=== PATIENT | male | born 1960 | race Caucasian/White ===

== ENCOUNTER 2017-04-05 09:56 | Day surgery (SDC) | payer OTHER ==
[2017-04-01 12:47] VITALS: BMI 31.6
[2017-04-05] MEDS ORDERED: ROPIVACAINE HCL 0.5% 30ML VIAL ONE (12:41)
[2017-04-05] MEDS ORDERED: DEXAMETHASONE SOD PHOSPHATE/PF 10 MG/ML SDV ONE (12:41)
[2017-04-05] MEDS ORDERED: MIDAZOLAM HCL 2 MG/2 ML SINGLE DOSE VIAL ONE ×4 (12:42→13:43)
[2017-04-05] MEDS ORDERED: ceFAZolin SODIUM 1 GM VIAL ONE (13:29)
[2017-04-05] MEDS ORDERED: LIDOCAINE HCL 1%, 10 MG/ML (20ML VIAL) ONE (13:46)
[2017-04-05] MEDS ORDERED: ONDANSETRON 4 MG/2 ML VIAL IVPUSH PRN (14:28)
[2017-04-05] MEDS ORDERED: oxyCODONE HCL 5 MG TABLET PO PRN ×2 (14:28)
[2017-04-05] MEDS ORDERED: LACTATED RINGERS SOLUTION 1,000 ML IV SCH (14:30)
--- NOTE | 2017-04-05 15:29 | OP ---
DATE OF OPERATION: 04/05/2017 SURGEON: Cheikh Ruiz MD ENGAGEMENT MANAGER: JENNIFER Marcus PREOPERATIVE DIAGNOSIS: Right Achilles tendon rupture. POSTOPERATIVE DIAGNOSIS: Right Achilles tendon rupture. PROCEDURE: Right Achilles tendon repair, open. FINDINGS: Ruptured Achilles tendon at junction between proximal and middle 1/3 of the tendon. PROCEDURE: Informed consent was obtained. Patient taken to the operating room where the right lower extremity was prepped and draped in sterile fashion. Tourniquet was placed on the upper leg and inflated to 300 mmHg. A longitudinal incision was made in the area between the middle and proximal 1/3 junction. The ends of the tendon were identified. Necrotic ends were debrided to strong tendon. A No. 2 FiberWire was used on each end using an interlocking [place] stitch. These were then tied together, bringing the 2 ends together with the foot in the plantarflexed position. Circumferentially, the tendon was oversewn using a No. 2 FiberWire. Wound was irrigated with copious amounts of irrigation throughout the procedure. A layered closure of 0 Vicryl, 2-0 Vicryl, and uyen was performed. A sterile dressing was placed and a splint was placed with foot in plantarflex. Was transferred to the recovery room without complication. CHEIKH RUIZ M.D. [id number]
[2017-04-05] MEDS ORDERED: oxyCODONE HCL 5 MG TABLET ONE (15:38)
[2017-04-05 16:51] VITALS: PULSE 71; TEMP 98
[2017-04-05 16:55] VITALS: BP 116/66
== END 2017-04-05 16:30 | disposition home or self-care (01) ==
LOC: FASU 09:56
PROVIDERS: ATTEND Orthopaedic Surgery
PROC: 0LQN0ZZ Repair Right Lower Leg Tendon, Open Approach (ICD-10-PCS; principal; 2017-04-05 13:44)
DX: S86.011A Strain of right Achilles tendon, initial encounter (principal); X58.XXXA Exposure to other specified factors, initial encounter; Y93.9 Activity, unspecified; Y92.9 Unspecified place or not applicable
CPT/HCPCS: 94760; 97116-GP